=== PATIENT | male | born 2000 | race Caucasian/White ===

== ENCOUNTER 2023-02-02 04:58 | Emergency (ER) | payer BC, SELFPAY ==
[2023-02-02 05:03] VITALS: BP 136/81; PULSE 98; RESP 18; TEMP 36.9; O2SAT 99; BMI 22.0
[2023-02-02 06:14] VITALS: BP 131/91; PULSE 100; RESP 16; TEMP 36.5; O2SAT 98
[2023-02-02 06:29] LABS: Basophils Absolute Auto 0.1 X10*3/uL (0.0-0.2); Basophils Percent Auto 0.7 % (0-2); Eosinophils Absolute Auto 0.3 X10*3/uL (0.0-0.4); Eosinophils Percent Auto 3.2 % (0-4); Hematocrit 44.3 % (42.0-52.0); Imm Gran Abs Auto 0.02 X10*3/uL (0.00-0.03); Imm Gran Pct Auto 0.2 % (0.0-0.4); Lymphocytes Absolute Auto 1.9 X10*3/uL (1.2-4.9); Lymphocytes Percent Auto 18.6 % (20-40); MANUAL DIFF FLAG NO; Mean Corpuscular HGB Conc 33.9 g/dl (31.0-36.0); Mean Corpuscular Hemoglobin 29.4 pg (27.0-33.0); Mean Corpuscular Volume 86.9 fL (80.0-98.0); Mean Platelet Volume 9.9 fL (9.4-12.4); Monocytes Absolute Auto 1.2 X10*3/uL (0.1-1.2); Monocytes Percent Auto 11.7 % (2-11); Neutrophils Absolute Auto 6.8 x10*3/uL (2.0-8.3); Neutrophils Percent Auto 65.6 % (45-73); Platelet Count 285 X10*3/uL (160-400); Red Cell Distribution Width 12.5 % (11.0-16.0); White Blood Count 10.4 X10*3/uL (4.8-10.8)
--- NOTE | 2023-02-02 06:44 | ED.GENADULT ---
HPI - General Adult General Chief complaint: General Medical Stated complaint: tick bite Time Seen by Provider: 02/02/23 06:41 Source: patient Mode of arrival: ambulatory Limitations: no limitations History of Present Illness HPI narrative: This is a 22-year-old male presenting with tick bite the left chest since Friday, he reports since then redness, swelling and warmth have been surrounding the tick bite he is concerned for Lyme disease. He got this while hiking. He reports that he is almost positive that he got the tick on Friday and he tells me that he removed at that same night. Has never had Lyme disease before. They complaints of joint pain throughout as well as sore throat. Denies chest pain, shortness of breath, headache, vision changes, dizziness, weakness, nausea, vomiting, abdominal pain. Related Data Previous Rx's Medication Instructions Recorded doxycycline hyclate 100 mg capsule 100 mg PO BID 14 days #28 caps 02/02/23 Allergies Allergy/AdvReac Type Severity Reaction Status Date / Time No Known Allergies Allergy Verified 02/02/23 05:03 Review of Systems Review of Systems: Constitutional : No Weight loss, No Fever, No Chills, No Fatigue, No Malaise ENT/Mouth : No sore throat, No Rhinorrhea Eyes: No Eye Pain, No Swelling, No Redness Cardiovascular : No Chest Pain, No SOB, No Dyspnea on Exertion, No Orthopnea, No Edema, No Palpitations Respiratory : No Cough, No Sputum, No Wheezing Gastrointestinal : No Nausea, No Vomiting, No Diarrhea, No Constipation, No abdominal Pain, No Hematochezia, No Melena Genitourinary : No Dysuria, No Urinary Frequency, No Hematuria, Musculoskeletal : No joint pain, No Myalgias, No Joint Swelling Skin : + Skin Lesions, No rash Neuro : No Weakness, No Numbness, No Dizziness, No Headache Psych : No Anxiety/Panic, No Depression All other systems reviewed and are negative Yes all other systems are reviewed and are negative PMFSH Past Medical History Attestation statement: The following information was validated with the patient. Source: old records reviewed and nursing notes reviewed Social History Social History Advance Directives: No Advance Directives Information Provided: No Physical Exam ED Vital Signs: Vital Signs - 24 hr 02/02/23 05:03 02/02/23 06:14 02/02/23 07:01 Temperature 98.4 F 97.7 F 98.2 F Pulse Rate 98 100 78 Respiratory Rate 18 16 16 Blood Pressure 136/81 131/91 H 126/83 Pulse Oximetry 99 98 97 Oxygen Delivery Method Room Air Room Air Room Air BMI result Body Mass Index 22.0 vss Appearance: Alert.? Oriented X3.? No acute distress.? Head: Normocephalic, atraumatic, no step-offs or deformities Eyes: Pupils equal, round and reactive to light.? Throat: WNL midline uvula, patenet airway, tonsils w/o errythema/exudate. Speaking in full sentences and controlling secretions well. Neck: Normal inspection.? Neck supple.? CVS: Normal heart rate and rhythm.? Pulses normal.? Respiratory: No respiratory distress.? Breath sounds normal.? Abdomen: Soft and nontender.? + small insect bite w/ surrounding erythema on his left upper chest. Skin: Skin warm and dry.? Normal skin color.? Normal skin turgor.? Extremities: No lower extremity edema.? No calf ttp. 5/5 strength to bilateral upper and lower extremities Neuro: Oriented X 3.? No motor deficit.? No sensory deficit. CN 2-12 intact Course Reevaluation(s) Reevaluation #1: CBC unremarkable. Chemistry pending. Lyme testing pending. At this time will discharge home on doxycycline. Educated patient on diagnosis and treatment plan, answered all question, patient verbalizes understanding. At this time patient will be discharged home, advised to return with new or worsening symptoms. Educated on worrisome signs and symptoms and when to return. At this time I feel comfortable discharge home. Time: 06:47 Reevaluation #2: tick panel pending. Time: 07:25 Medical Decision Making Medical Decision Making [facility] Narrative: 22-year-old male presents status post tick bite few days ago Physical exam small insect bite w/ surrounding erythema on his left upper chest. Concerns for tick bite versus tick-borne illnesses versus cellulitis. Unlikely necrosis, SJS, TEN Plan- labs Differential Diagnosis Differential Diagnoses: The differential diagnosis associated with the presentation includes Concerns for tick bite versus tick-borne illnesses versus cellulitis. Unlikely necrosis, SJS, TEN Admission/Observation Consideration of admission/observation: Escalation of care including admission/observation considered Lab Data [facility] Lab Attestation statement: I reviewed the patient's lab results. 02/02/23 06:24 02/02/23 06:24 Labs: Lab Results 02/02/23 Range/Units 06:24 WBC 10.4 (4.8-10.8) X10*3/uL RBC 5.10 (4.60-5.80) X10*6/uL Hgb 15.0 (14.0-18.0) g/dl Hct 44.3 (42.0-52.0) % MCV 86.9 (80.0-98.0) fL MCH 29.4 (27.0-33.0) pg MCHC 33.9 (31.0-36.0) g/dl RDW 12.5 (11.0-16.0) % Plt Count 285 (160-400) X10*3/uL MPV 9.9 (9.4-12.4) fL Immature Gran % (Auto) 0.2 (0.0-0.4) % Neut % (Auto) 65.6 (45-73) % Lymph % (Auto) 18.6 L (20-40) % [place] % (Auto) 11.7 H (2-11) % Eos % (Auto) 3.2 (0-4) % Baso % (Auto) 0.7 (0-2) % Lymph # (Auto) 1.9 (1.2-4.9) X10*3/uL [place] # (Auto) 1.2 (0.1-1.2) X10*3/uL Eos # (Auto) 0.3 (0.0-0.4) X10*3/uL Baso # (Auto) 0.1 (0.0-0.2) X10*3/uL Abs Immat Gran (auto) 0.02 (0.00-0.03) X10*3/uL Absolute Neuts (auto) 6.8 (2.0-8.3) x10*3/uL Absolute Nucleated RBC 0.000 (0.0-0.012) X10*3/uL Nucleated RBC % (auto) 0.0 (0.0-0.2) /100WBC Sodium 137 (135-145) mmol/L Potassium 4.2 (3.3-5.1) mmol/L Chloride 106 (96-108) mmol/L Carbon Dioxide 24 (22-29) mmol/L Anion Gap 11 L (12-20) BUN 22 H (9-16) mg/dL Creatinine 0.90 (0.5-1.4) mg/dL Estim Creat Clear Calc 173.4 Estimated GFR > 60 Random Glucose 94 (60-115) mg/dL Calcium 10.0 (8.4-10.2) mg/dL Prescription Management I considered prescription management with: Antibiotic Critical Care Time Critical Care Time Critical Care Time: No Discharge Plan Discharge Clinical Impression: Tick bite Patient Disposition: Home, Self-Care Instructions: Tick Bite (ED) Additional Instructions: Take your medications as prescribed. If you were prescribed antibiotics today, it is important that you take your medication to their entirety, do not skip any doses, do not finish them early. Follow-up with your primary care provider this week. Return to the emergency department with new or worsening symptoms. Such as fevers, chills, chest pain, shortness of breath, nausea, vomiting, dizziness, headache, vision changes, lethargy In case of emergency call 911 You will be called if your lyme/tick panel testing is +, in the meantime take doxycycline as prescribed. Prescriptions: New doxycycline hyclate 100 mg capsule 100 mg PO BID 14 Days Qty: 28 0RF Referrals: Physician,Unknown J [Primary Care Provider] - 2 days Stand Alone Forms: Work/School Release Interventions: ED Discharge Assessment Last Done: 02/02/23 07:23 Discharge Date/Time: 02/02/23 07:24
[2023-02-02 06:45] LABS: Anion Gap 11 (12-20); Blood Urea Nitrogen 22 mg/dL (9-16); Carbon Dioxide 24 mmol/L (22-29); Chloride 106 mmol/L (96-108); Creatinine Clr Calc Pharmacy 173.4; Estimated Glomerular Filt Rate > 60; Glucose Random 94 mg/dL (60-115); Potassium 4.2 mmol/L (3.3-5.1); Sodium 137 mmol/L (135-145)
--- OUTSIDE RECORDS SUMMARY | 2023-02-02 06:47 | XMS_ITS | Continuity of Care Document ---
Author Name Unknown Organization [facility] Adult Address [address] [place] [address]- Care Team Providers Care Computer Tech Name Role Phone Sarabjit MELLO, Vera Gibson Primary Care Physician [phone] Encounter [facility] Date(s): 05/16/22 - 05/23/22 [facility] [address] [place] [phone] Encounter Diagnosis Annual physical exam(Discharge Diagnosis) - 05/16/22 Seasonal allergies(Discharge Diagnosis) - 05/16/22 Left ear impacted cerumen(Discharge Diagnosis) - 05/16/22 Attending Physician: Not on Staff, Attending MD Allergies, Adverse Reactions, Alerts No Known Medication Allergies Immunizations Given and Recorded Vaccine Date Status Refusal Reason influenza virus vaccine, inactivated 05/16/22 Give n influenza virus vaccine, inactivated 06/06/21 Jorden rded influenza virus vaccine, inactivated 01/14/20 Jorden rded influenza virus vaccine, inactivated 05/31/19 Jorden rded SARS-CoV-2 (COVID-19) mRNA BNT-162b2 vac 07/25/20 Recorded SARS-CoV-2 (COVID-19) mRNA BNT-162b2 vac 06/28/20 Recorded Human Papillomavirus Vaccine 01/14/20 Recorded Human Papillomavirus Vaccine 05/31/19 Recorded Hepatitis A Adult Vaccine 01/14/20 Recorded Meningococcal Conjugate Vaccine 05/31/19 Recorded Hepatitis A Pediatric Vaccine 05/31/19 Recorded Problem List Condition Confirmation Course Effective Dates Status Health [facility] Informant Seasonal allergies Confirmed Active Diagnosis Diagnosis Type Effective Dates Health Status Cl inical Service Informant Annual physical exam Discharge Diagnosis 05/16/22 Seasonal allergies Discharge Diagnosis 05/16/22 Left ear impacted cerumen Discharge Diagnosis 05/16/22 Procedures Procedure Date Related Diagnosis Body Site Status None Completed Vital Signs Most recent to oldest [Reference Range]: 1 2 Height 182.5 cm (05/16/22 3:24 PM) 182.5 cm (05/16/22 3:14 PM) Weight 99.4 kg (05/16/22 3:14 PM) Oxygen Saturation [94-100 %] 96 % (05/16/22 3:14 PM) Pulse Rate [55-90 bpm] 95 bpm *H* (05/16/22 3:14 PM) Body Mass Index [18.5-24.99 kg/m2] 29.84 kg/m2 *H* (05/16/22 3:14 PM) Blood Pressure [90-138/55-84 mm Hg] 143/ 88mm Hg *H* (05/16/22 3:24 PM) 163/79mm Hg *H* (05/16/22 3:14 PM) Mode of Delivery (Oxygen) Room air (05/16/22 3:14 PM) Blood pressure sites Arm, right (05/16/22 3:24 PM) Arm, right (05/16/22 3:14 PM) Weight Obtained Via Standing scale (05/16/22 3:14 PM) Social History Social History Type Response Smoking Status Never (less than 100 in lifetime); Other: Vaping; entered on: 05/16/22 Sex Note * Mely Rosales: PERFORM, SIGN, VERIFY Event Display: Patient Education/Instruction Authored Date: [id number] [facility] *[facility] Clinical Summary Name MAN FRAZIER Age 21 Years 2000 PCP Vera Whipple NP PCP [facility] [id number] Visit Date 05/16/2022 15:13:00 Additional Instructions: Scheduled Appointments?? Future Appointments ?*Int??Behav??[facility] ?Phone:??--?Fax:??-- ?Appt. Date:??06/14/2022?2:00 PM ?Scheduled Provider:??Patricia Ríos Follow-Up Instructions ?? Diagnosis Impacted cerumen, left ear; Encounter for screening for diabetes mellitus; Encounter for general adult medical examination without abnormal findings; Other seasonal allergic rhinitis; Encounter for screening for lipoid disorders; Adjustment disorder with mixed anxiety and depressed mood Medications: Please continue your medications until treatment is completed or stopped by your provider. Discuss any questions related to medications with your provider. Allergy Info:?? No Known Medication Allergies Medications Given This Visit Medication Dose Route influenza virus vaccine, inactivated (influenza virus, inactivated vacc) 0.5 mL Intramuscular Future Orders ?TSH? Order Date:05/16/22?- Complete on or after?05/16/22 ?Renal Panel? Order Date:05/16/22?- Complete on or after?05/16/22 ?ALT? Order Date:05/16/22?- Complete on or after?05/16/22 ?CBC? Order Date:05/16/22?- Complete on or after?05/16/22 ?Lipid Panel Non Fasting? Order Date:05/16/22?- Complete on or after?05/16/22 Vital Signs Height 182.5 cm Weight 99.4 kg BMI 29.84 kg/m2 Blood Pressure 143 mm Hg/88 mm Hg Temperature Pulse Rate 95 bpm Respiratory Rate 02 Sat Mode of Delivery 96 %/Room air You can now view a summary of your hospital visit from the comfort of your home through a free online portal called [employer]. [employer] is a website that allows you to securely view your medical information including discharge summary, medications and follow-up visits. ??You can alsosend a secure electronic message to your doctor???s office to request appointments, renew medications or just ask a question. You can enroll at [email or web address] or register during your next office visit. Disclaimer:?? The information provided is of a general nature and is intended to be used in conjunction with the recommendations and advice of your health care practitioner. ??Every effort has been made to ensure that the information provided is accurate and complete at the time it is provided to you however, as your needs change, or, as new ??information becomes available, different or additional instructions may be required. If you have questions, please consult with your primary care provider or pharmacist, as appropriate. ??This information is not intended to serve as substitution for assessment and evaluation by a qualified health care provider. If you do not have a primary care provider, you may find a [facility] provider by calling [facility] at [phone]. For information about the plan of care including goals and instructions for your diagnosis, please see the patient education orders section of this document. Patient Education Materials?? The content of this educational material or handout may have been modified, supplemented, or adapted from its original content and format to support your individualized medical care. Prevention Guidelines, Men Ages 18 to 39 Screening tests and vaccines are an important part of managing your health. Health counseling is essential, too. Below are guidelines for these, for men ages 18 to 39. Talk with your healthcare provider to make sure you???re up-to-date on what you need. Screening Who needs it How often Alcohol misuse All men in this age group At routine exams Blood pressure All men in this age group Every 2 years if your blood pressure is less than 120/80 mm Hg; yearly if your systolic blood pressure is 120 to 139 mm Hg, or your diastolic blood pressure reading is 80 to 89 mm Hg Depression All men in this age group At routine exams Diabetes mellitus, type 2 Adults who have no symptoms but are overweight or obese and have 1 or more other risk factors for diabetes At least every 3 years Hepatitis C If at increased risk At routine exams High cholesterol or triglycerides All men ages 35 and older, and younger men at high risk for coronary artery disease At least every 5 years HIV All men At routine exams Obesity All men in this age group At routine exams Syphilis Men at increased risk for infection ??? talk with your healthcare provider At routine exams Tuberculosis Men at increased risk for infection ??? talk with your healthcare provider Check with your healthcare provider Vision All men in this age group Every 5 to 10 years if no risk factors for eye disease Vaccines1 Who needs it How often Chickenpox (varicella) All men in this age group who have no record of this infection or vaccine 2 doses; the second dose should be given at least 4 weeks after the first dose Hepatitis A Men at increased risk for infection ??? talk with your healthcare provider 2 doses given at least 6 months apart Hepatitis B Men at increased risk for infection ??? talk with your healthcare provider 3 doses over 6 months; second dose should be given 1 month after the first dose; the third dose should be given at least 2 months after the second dose and at least 4 months after the first dose Haemophilus influenzae Type B (HIB) Men at increased risk for infection ??? talk with your healthcare provider 1 to 3 doses Human papillomavirus (HPV4) All men through age 21 years Men ages 22 to 26 who are at risk 3 doses; the second dose should be given 1 to 2 months after the first dose and the third dose given 6 months after the first dose Influenza (flu) All men in this age group Once a year Measles, mumps, rubella (MMR) All men in this age group who have no record of these infections or vaccines 1 or 2 doses through age 55 Meningococcal Men at increased risk for infection ??? talk with your healthcare provider 1 or more doses Pneumococca (PCV13) and Pneumococcal (PPSV23) Men at increased risk for infection ??? talk with your healthcare provider PCV13: 1 dose ages 19 to 65 (protects against 13 types of pneumococcal bacteria) PPSV23: 1 to 2 doses through age 64, or 1 dose at 65 or older (protects against 23 types of pneumococcal bacteria) Tetanus/diphtheria/pertussis (Td/Tdap) booster All men in this age group A one-time Tdap booster after age 18, then Td every10 years Counseling Who needs it How often Diet and exercise Overweight or obese people When diagnosed, and then at routine exams Use of tobacco and the health affects it can cause All men in this age group Every visit Sexually transmitted infection prevention Men who are sexually active At routine exams Skin cancer Prevention of skin cancer in fair-skinned adults through age 24 At routine exams 1Those who are 18 years of age, who are not up-to-date on their childhood immunizations, should receive all appropriate catch-up vaccines recommended by the CDC. ?? 3676-2552 [employer]. [address] [place] [address], [place] [address]. All rights reserved. This information is not intended as a substitute for professional medical care. Always follow your healthcare professional's instructions. Patient Care team information Care Team Personnel Name: Vera Whipple NP Position: [facility] Associate Professional Member Role: PCP Address: Address: [address] [place] [address] [address] [place] [address]- Care Team Related Persons Name: FADIA FRAZIER Address: [address] [address] Name: JENNIFER FRAZIER Address: [address] [address] Name: JENNIFER FRAZIER Address: [place] [id number]
[2023-02-02 07:01] VITALS: BP 126/83; PULSE 78; RESP 16; TEMP 36.8; O2SAT 97
[2023-02-04 02:13] LABS: A. Phagocytphilium DNA,RT-PCR NOT DETECTED (NOT DETECTED); Babesia Microti DNA, RT-PCR NOT DETECTED (NOT DETECTED); Borrelia Miyamotoi,DNA RT-PCR NOT DETECTED (NOT DETECTED); E.Chaffeensis DNA RT-PCR NOT DETECTED (NOT DETECTED); Lyme(Borrelia ssp)DNA RT-PCR NOT DETECTED (NOT DETECTED)
== END 2023-02-02 07:24 | disposition home or self-care (01) ==
PROVIDERS: Physician Assistant; Emergency Provider Emergency Medicine
DX: T63.481A Toxic effect of venom of other arthropod, accidental (unintentional), initial encounter (principal); Y92.9 Unspecified place or not applicable; Z79.899 Other long term (current) drug therapy; Z11.52 Encounter for screening for COVID-19; Z20.822 Contact with and (suspected) exposure to COVID-19
CPT/HCPCS: 36415; 80048; 85025; 87468; 87469; 87478; 87484; 87798; 99283; 99284